=== PATIENT | female | born 1960 | race Caucasian/White ===

== ENCOUNTER → 2017-10-01 | Outpatient (CLI) | payer BC ==
--- NOTE | 2017-11-04 10:57 | CODING QUERY NO DIAGNOSIS ---
Valid Physician Order Needed A valid physician order must be submitted in order to properly bill for the service(s) provided, including date of service(s), valid diagnosis, and physician signature. If these tests are done on a recurring basis the original physician order must be submitted in order to code and bill for the service(s) provided. Please fax us the original, signed physician order so that we may expedite billing to [phone] DOS 10/01/2017 * Dietary Counseling/Education (Order needs to be dated for 10/01/17. Thank you for changing the codes I just need the date to be 10/01/17.) Thank you Allie Mays [employer]
== END | disposition home or self-care (01) ==
LOC: C.FOODA 12:57
PROVIDERS: ATTEND Orthopaedic Surgery Sports Medicine
DX: E66.9 Obesity, unspecified (principal); Z68.41 Body mass index [BMI] 40.0-44.9, adult; M72.2 Plantar fascial fibromatosis; M77.31 Calcaneal spur, right foot; M67.01 Short Achilles tendon (acquired), right ankle